=== PATIENT | male | born 2000 | race Two or more races ===

== ENCOUNTER 2023-10-24 20:36 | Inpatient (IN) | payer MEDICAID, OTHER ==
[~2023-10-24] VITALS: Ht 180.3 cm; Wt 81.9 kg
[2023-10-24 21:41] LABS: Basophils # (auto) 0.1 10 ^3/uL (0-0.2); Basophils % (auto) 0.3 % (0.0-2.0); Eosinophils # (auto) 0 10 ^3/uL (0-0.8); Eosinophils % (auto) 0.2 % (0.0-7.0); Hematocrit 48.3 % (41.0-53.0); Hemoglobin 16.6 g/dL (13.5-17.5); Lymphocytes # (auto) 1.4 10 ^3/uL (0.4-5.4); Lymphocytes % (auto) 6.8 % (10.0-50.0); Mean Corpuscular Hemoglobin 30.7 pg (28.0-32.0); Mean Corpuscular Hgb Conc. 34.3 g/dL (32.0-36.0); Mean Corpuscular Volume 89.4 fL (80.0-100.0); Monocytes # (auto) 1.4 10 ^3/uL (0-1.3); Monocytes % (auto) 7.1 % (0.0-12.0); Neutrophils # (auto) 17.3 10 ^3/uL (1.6-8.6); Neutrophils % (auto) 85.6 % (37.0-80.0); Nucleated Red Blood Cells % 0.1 %; Red Cell Distribution Width 13.1 % (11.8-14.3); White Blood Cell 20.2 10^3/uL (4.4-10.8)
[2023-10-24 21:56] LABS: Alanine Aminotransferase 21 U/L (7-40); Albumin 5.1 g/dL (3.2-4.8); Alkaline Phosphatase 86 U/L (46-116); Anion Gap 4 (5-15); Aspartate Aminotransferase 13 U/L (13-40); BUN/Creatinine Ratio 7.9 (10.0-20.0); Bilirubin, Total 0.9 mg/dL (0.2-1.0); Blood Urea Nitrogen 9 mg/dL (9-23); Calcium 10.4 mg/dL (8.5-10.1); Carbon Dioxide 27 mmol/L (20-30); Chloride 108 mmol/L (98-107); Glucose 104 mg/dL (74-106); Potassium 4.1 mmol/L (3.5-5.1); Sodium 139 mmol/L (136-145); Total Protein 7.9 g/dL (5.7-8.2)
[2023-10-24 23:07] LABS: INR 1.13 (0.9-1.15); Partial Thromboplastin Time 28.9 SEC (24.5-34.5); Prothrombin Time 11.9 sec (9.3-11.8)
[2023-10-25] VITALS (7 sets, daily range): BP systolic 114–134; BP diastolic 65–83; PULSE 63–85; RESP 16–19; TEMP 97–98.6; O2SAT 95–98
[2023-10-25] MEDS: SODIUM CHLORIDE 0.9% 1,000 ML IV ONE (02:03)
[2023-10-25] MEDS: PIPERACILLIN-TAZOB 3.375GM 100 ML IV ONE (02:23)
[2023-10-25] MEDS: SODIUM CHLORIDE 0.9% 1,000 ML IV SCH (02:24)
[2023-10-25] MEDS: ONDANSETRON HCL 4 MG/2 ML VIAL IV PRN (02:41)
[2023-10-25] MEDS: MORPHINE SULFATE INJ 2 MG/ml SYRG IV PRN (02:42)
[2023-10-25] MEDS: PIPERACILLIN-TAZOB 3.375GM 100 ML IV SCH (06:28)
[2023-10-25 07:02] LABS: Basophils # (auto) 0.1 10 ^3/uL (0-0.2); Basophils % (auto) 0.4 % (0.0-2.0); Eosinophils # (auto) 0.1 10 ^3/uL (0-0.8); Eosinophils % (auto) 0.8 % (0.0-7.0); Hematocrit 46.3 % (41.0-53.0); Hemoglobin 16.1 g/dL (13.5-17.5); Lymphocytes # (auto) 2.3 10 ^3/uL (0.4-5.4); Lymphocytes % (auto) 16.8 % (10.0-50.0); Mean Corpuscular Hgb Conc. 34.8 g/dL (32.0-36.0); Monocytes # (auto) 1.6 10 ^3/uL (0-1.3); Monocytes % (auto) 11.4 % (0.0-12.0); Neutrophils # (auto) 9.7 10 ^3/uL (1.6-8.6); Neutrophils % (auto) 70.6 % (37.0-80.0); Nucleated Red Blood Cells % 0.1 %; Red Blood Cells 5.21 10^6/uL (4.5-5.90); White Blood Cell 13.8 10^3/uL (4.4-10.8)
[2023-10-25 07:15] LABS: Alanine Aminotransferase 14 U/L (7-40); Albumin 4.6 g/dL (3.2-4.8); Alkaline Phosphatase 74 U/L (46-116); Anion Gap 5 (5-15); Aspartate Aminotransferase 10 U/L (13-40); BUN/Creatinine Ratio 7.2 (10.0-20.0); Blood Urea Nitrogen 7 mg/dL (9-23); Calcium 9.8 mg/dL (8.5-10.1); Carbon Dioxide 25 mmol/L (20-30); Chloride 107 mmol/L (98-107); Glucose 100 mg/dL (74-106); Sodium 137 mmol/L (136-145)
[2023-10-25 07:16] LABS: Bilirubin, Total 1.3 mg/dL (0.2-1.0); Total Protein 7.1 g/dL (5.7-8.2)
[2023-10-25] MEDS: PANTOPRAZOLE 40 MG/10 ML VIAL INJ IV SCH (08:15)
[2023-10-25] MEDS ORDERED: LIDOCAINE 2%HCL (LOCAL ANESTH.) INJ 10ml MDV ONE (08:46)
[2023-10-25] MEDS ORDERED: LIDOCAINE HCL 2 %PF INJ 10ML AMP IJ ONE (08:47)
[2023-10-25] MEDS ORDERED: SUGAMMADEX 200mg/2ml Vial (100MG/ML) IV ONE (08:49)
[2023-10-25] MEDS ORDERED: ONDANSETRON HCL 4 MG/2 ML VIAL ONE (08:49)
[2023-10-25] MEDS ORDERED: GLYCOPYRROLATE 0.2 MG/ML 1ML VIAL ONE (08:49)
[2023-10-25] MEDS ORDERED: KETOROLAC TROMETH 30 MG/ML 1ML VIAL ONE (08:49)
[2023-10-25] MEDS ORDERED: LIDOCAINE HCL 2% TOP JELLY 5ML TOP ONE (08:49)
[2023-10-25] MEDS ORDERED: DexAMETHasone SOD PHOS 10MG/1ML VIAL INJ ONE (08:49)
[2023-10-25] MEDS ORDERED: PROPOFOL 10 MG/ML 20 ML IV ONE (08:49)
[2023-10-25] MEDS ORDERED: ROCURONIUM 10MG/ML 10ML VIAL IV ONE (08:49)
[2023-10-25] MEDS ORDERED: CELECOXIB 100 MG CAP ONE (09:03)
[2023-10-25] MEDS ORDERED: GABAPENTIN 400 MG CAP ONE (09:03)
[2023-10-25] MEDS ORDERED: ACETAMINOPHEN IV 100 ML IV ONE (09:03)
[2023-10-25] MEDS ORDERED: fentaNYL CITRATE 100 MCG/2 ML VL ONE (09:13)
[2023-10-25] MEDS ORDERED: KETAMINE 50mg/ML 1ml syringe ONE (09:13)
[2023-10-25] MEDS ORDERED: CELECOXIB 100 MG CAP PO ONE (09:15)
[2023-10-25] MEDS ORDERED: GABAPENTIN 400 MG CAP PO ONE (09:15)
[2023-10-25] MEDS ORDERED: ACETAMINOPHEN IV 1000 MG/100ML (10MG/ML) IV ONE (09:15)
[2023-10-25] MEDS ORDERED: ESMOLOL HCL 10 ML IV ONE (09:46)
[2023-10-25] MEDS: BUPIVACAINE 0.5% MPF INJ 30ML SDV IJ ONE (09:47)
[2023-10-25] MEDS: LIDOCAINE W/ EPINEPHRINE 1% 20ML VIAL ONE (09:47)
[2023-10-25] MEDS ORDERED: HYDROmorphone HCL 2 MG/ML VL/or syr IV PRN (10:15)
[2023-10-25] MEDS ORDERED: ONDANSETRON HCL 4 MG/2 ML VIAL IV PRN (10:30)
[2023-10-25] MEDS ORDERED: fentaNYL CITRATE 100 MCG/2 ML VL IV PRN (10:30)
[2023-10-25] MEDS ORDERED: hydrALAZINE HCL 20 MG/ML VL IV PRN (10:30)
[2023-10-25] MEDS ORDERED: FLUMAZENIL 0.1 MG/ML INJ 10ML MDV IV PRN (10:30)
[2023-10-25] MEDS ORDERED: NALOXONE HCL 0.4 MG/ML VIAL IV PRN (10:30)
[2023-10-25] MEDS ORDERED: LABETALOL HCL 5 MG/ML 4ML SYRINGE IV PRN (10:30)
[2023-10-25] MEDS ORDERED: ePHEDrine SULFATE 50 MG/ML AMP IV PRN (10:30)
[2023-10-25] MEDS: HYDROmorphone HCL 2 MG/ML VL/or syr IV PRN (10:36)
[2023-10-25] MEDS: D5W/SOD CHL 0.45%/KCL 20MEQ 1,000 ML IV SCH (12:02)
[2023-10-25] MEDS: oxyCODONE HCL 5MG TAB PO PRN (12:59)
[2023-10-25] MEDS ORDERED: THROAT LOZENGES(CEPASTAT) MT PRN (14:30)
[2023-10-25] MEDS: ACETAMINOPHEN/CODEINE#3 (300/30mg) TAB PO PRN (18:42)
[2023-10-26 01:00] VITALS: BP 116/62; PULSE 83; RESP 18; TEMP 97.7; O2SAT 96
[2023-10-26 05:00] VITALS: BP 129/70; PULSE 61; RESP 18; TEMP 97.8; O2SAT 96
[2023-10-26 06:07] LABS: Basophils # (auto) 0 10 ^3/uL (0-0.2); Basophils % (auto) 0.1 % (0.0-2.0); Eosinophils # (auto) 0 10 ^3/uL (0-0.8); Hematocrit 45.9 % (41.0-53.0); Hemoglobin 15.6 g/dL (13.5-17.5); Lymphocytes # (auto) 1.5 10 ^3/uL (0.4-5.4); Lymphocytes % (auto) 8.7 % (10.0-50.0); Mean Corpuscular Hemoglobin 30.4 pg (28.0-32.0); Mean Corpuscular Hgb Conc. 33.9 g/dL (32.0-36.0); Mean Corpuscular Volume 89.6 fL (80.0-100.0); Monocytes # (auto) 1.6 10 ^3/uL (0-1.3); Monocytes % (auto) 9.4 % (0.0-12.0); Neutrophils # (auto) 13.9 10 ^3/uL (1.6-8.6); Neutrophils % (auto) 81.8 % (37.0-80.0); Nucleated Red Blood Cells % 0.1 %; Red Blood Cells 5.12 10^6/uL (4.5-5.90)
[2023-10-26 06:35] LABS: Alanine Aminotransferase 12 U/L (7-40); Albumin 4.2 g/dL (3.2-4.8); Alkaline Phosphatase 65 U/L (46-116); Anion Gap 5 (5-15); Aspartate Aminotransferase 10 U/L (13-40); BUN/Creatinine Ratio 6.7 (10.0-20.0); Blood Urea Nitrogen 6 mg/dL (9-23); Calcium 9.7 mg/dL (8.7-10.4); Carbon Dioxide 25 mmol/L (20-30); Chloride 106 mmol/L (98-107); Glucose 115 mg/dL (74-106); Magnesium 2.1 mg/dL (1.6-2.6); Potassium 4.2 mmol/L (3.5-5.1); Sodium 136 mmol/L (136-145)
[2023-10-26 06:36] LABS: Bilirubin, Total 1.3 mg/dL (0.2-1.0); Total Protein 6.8 g/dL (5.7-8.2)
[2023-10-26 08:00] VITALS: PULSE 71; RESP 18
[2023-10-26 09:35] VITALS: BP 128/75; PULSE 71; RESP 18; TEMP 97.3; O2SAT 97
[2023-10-26] MEDS ORDERED: AUG875T PO (11:11)
[2023-10-26 12:43] VITALS: BP 134/86; PULSE 70; RESP 21; TEMP 97.4; O2SAT 98
[2023-10-26 15:13] VITALS: BP 134/86; PULSE 70; RESP 18; TEMP 97.4; O2SAT 98
== END 2023-10-26 15:38 | disposition home or self-care (01) | DRG 710 ==
LOC: ER 20:36 → OVERFLOW 23:18 → WEST WING 10-25 04:30
PROVIDERS: ADMIT Nurse Practitioner; ATTEND Internal Medicine Geriatric Medicine
PROC: 0DTJ4ZZ Resection of Appendix, Percutaneous Endoscopic Approach (ICD-10-PCS; principal; 2023-10-25 09:21)
DX: A41.9 Sepsis, unspecified organism (principal); K35.80 Unspecified acute appendicitis
CPT/HCPCS: 36415; 71045; 74176; 80053; 83605; 83735; 85025; 85610; 85730; 86850; 86900; 86901; C9113; G0378; J0131; J1100; J1885; J2001; J2405; J2543; J2704; J3490